=== PATIENT | male | born 1960 | race Two or more races ===

== ENCOUNTER 2017-10-26 07:10 | Day surgery (SDC) | END 2017-10-26 11:14 | disposition home or self-care (01) ==

== ENCOUNTER 2018-05-06 16:29 | Inpatient (IN) | payer OTHER ==
[~2018-05-06] VITALS: Ht 177.8 cm; Wt 87.0 kg
[~2018-05-06 16:29] MED LIST: AMLODIPINE
[2018-05-06] MEDS ORDERED: ACETAMINOPHEN 325 MG TAB PO STA (16:58)
[2018-05-06] MEDS ORDERED: CEFTRIAXONE 1 GM/50 ML (PMX) 50 ML IVPB STA (16:58)
[2018-05-06] MEDS ORDERED: SODIUM CHLORIDE 0.9% 1L BAG IV* STA (16:58)
--- NOTE | 2018-05-06 17:01 | ERD ---
ER Documentation Chief Complaint Chief Complaint BLOOD IN URINE X 2 DAYS HPI 58-year-old male with history of hypertension and prostatism presents to the ED complaining of a 3-day history of worsening suprapubic and perineal pain with dysuria, polyuria and dark urine. Denies back or flank pain. No nausea, vomiting, diarrhea or constipation. Denies scrotal swelling or penile discharge. No skin rash. No URI symptoms or cough. Denies chest pain, palpitations or shortness of breath. Denies anorexia, weight loss or night sw eats. Subjective fevers and chills. ROS All systems reviewed and are negative except as per history of present illness. Medications Home Meds Reported Medications Amlodipine Besylate* (Norvasc*) 5 Mg Tablet, 5 MG PO DAILY, TAB 05/06/18 Discontinued Reported Medications [Amlodipine] No Conflict Check 10/26/17 Allergies Allergies: Coded Allergies: No Known Drug Allergy (Verified Allergy, Mild, 09/05/10) PMhx/Soc Reviewed in chart. As per HPI. History of Surgery: Yes (APPENDECTOMY, prostate biopsy) Anesthesia Reaction: No Hx Neurological Disorder: No Hx Respiratory Disorders: No Hx Cardiac Disorders: Yes (HTN) Hx Psychiatric Problems: No Hx Miscellaneous Medical Probl: Yes (Prostatism, elevated PSA) Hx Alcohol Use: Yes Hx Substance Use: No Hx Tobacco Use: No FmHx No stroke or cancer Physical Exam Vitals Vital Signs Date Temp Pulse Resp B/P (MAP) Pulse Ox O2 O2 Flow FiO2 Time Delivery Rate 05/06/18 100.0 91 18 121/76 98 Room Air 19:34 (91) 05/06/18 93 20 124/81 97 Room Air 18:34 (95) 05/06/18 102 23 118/78 94 Room Air 18:26 (91) 05/06/18 101.8 17:27 05/06/18 Nasal 2 17:10 Cannula 05/06/18 103.1 122 18 146/93 99 16:32 (110) Physical Exam Const: Alert, moderate distress Head: Atraumatic Eyes: Normal Conjunctiva ENT: Normal External Ears, Nose and Mouth. Neck: Full range of motion. No meningismus. Resp: Clear to auscultation bilaterally Cardio: Regular rate and rhythm, no murmurs Abd: Soft, mild suprapubic tenderness but no right or left lower quadrant tenderness. No rebound or guarding. Non distended. Normal bowel sounds. Rectal examination deferred : Normal external genitalia. No scrotal swelling, erythema, crepitus or tenderness. Skin: No petechiae or rashes Back: No midline or flank tenderness Ext: No cyanosis, or edema Neur: Awake and alert Psych: Normal Mood and Affect Result Diagram: 05/08/18 0430 05/08/18 0431 Results 24 hrs Laboratory Tests Test 05/06/18 17:03 05/06/18 17:06 05/06/18 18:00 White Blood Count 20.7 10^3/ul Red Blood Count 5.10 10^6/ul Hemoglobin 15.3 g/dl Hematocrit 46.0 % Mean Corpuscular Volume 90.2 fl Mean Corpuscular Hemoglobin 30.0 pg Mean Corpuscular 33.3 g/dl Hemoglobin Concent Red Cell Distribution Width 12.9 % Platelet Count 229 10^3/UL Mean Platelet Volume 9.7 fl Immature Granulocytes % 0.900 % Neutrophils % 82.0 % Lymphocytes % 7.1 % Monocytes % 9.6 % Eosinophils % 0.1 % Basophils % 0.3 % Nucleated Red Blood Cells % 0.0 /100WBC Immature Granulocytes # 0.190 10^3/ul Neutrophils # 17.0 10^3/ul Lymphocytes # 1.5 10^3/ul Monocytes # 2.0 10^3/ul Eosinophils # 0.0 10^3/ul Basophils # 0.1 10^3/ul Nucleated Red Blood Cells # 0.0 10^3/ul Prothrombin Time 14.5 Sec Prothrombin Time Ratio 1.1 INR International 1.12 Normalized Ratio Activated Partial Thromboplast 30.7 Sec Time Sodium Level 138 mmol/L Potassium Level 4.5 mmol/L Chloride Level 101 mmol/L Carbon Dioxide Level 25 mmol/L Anion Gap 12 Blood Urea Nitrogen 20 mg/dl Creatinine 1.04 mg/dl Est Glomerular Filtrat > 60 mL/min Rate mL/min Glucose Level 139 mg/dl Calcium Level 9.7 mg/dl Total Bilirubin 0.5 mg/dl Direct Bilirubin 0.00 mg/dl Indirect Bilirubin 0.5 mg/dl Aspartate Amino 41 IU/L Transf (AST/SGOT) Alanine 47 IU/L Aminotransferase (ALT/SGPT) Alkaline Phosphatase 145 IU/L Troponin I < 0.012 ng/ml Total Protein 7.8 g/dl Albumin 4.4 g/dl Globulin 3.40 g/dl Albumin/Globulin Ratio 1.29 POC Venous Lactate 1.6 mmol/L Urine Color CHAD Urine Clarity CLOUDY Urine pH 5.0 Urine Specific Bailey 1.037 Urine Ketones 1+ mg/dL Urine Nitrite NEGATIVE mg/dL Urine Bilirubin 1+ mg/dL Urine Urobilinogen 2+ mg/dL Urine Leukocyte Esterase 2+ Nelson/ul Urine Microscopic RBC 25 /HPF Urine Microscopic WBC > 182 /HPF Urine Bacteria FEW /HPF Urine Mucus MANY /HPF Urine Hemoglobin 1+ mg/dL Urine Glucose NEGATIVE mg/dL Urine Total Protein 3+ mg/dl Current Medications Medications Dose Sig/Kaylin Start Time Status Last (Trade) Ordered Route PRN Stop Time Admin Dose Reason Admin Sodium 2,620 ml BOLUS OVER 2 05/06/18 DC 05/06/18 Chloride HOURS STAT 16:58 17:27 (NS) IV* 05/06/18 17:01 650 mg ONCE STAT 05/06/18 DC 05/06/18 Acetaminophen PO 16:58 17:27 (Tylenol 05/06/18 17:01 Tab) Ceftriaxone 50 ml @ ONCE STAT 05/06/18 DC 05/06/18 Sodium 100 mls/hr IVPB 16:58 17:26 05/06/18 17:27 IV Flush 10 ml STK-MED 05/06/18 DC 05/06/18 (NS 10 ml) ONCE .ROUTE 18:55 19:15 05/06/18 18:56 Sodium 100 ml @ ud STK-MED 05/06/18 DC 05/06/18 Chloride ONCE .ROUTE 18:55 19:15 05/06/18 18:56 Iodixanol 100 ml STK-MED 05/06/18 DC 05/06/18 (Visipaque ONCE .ROUTE 18:55 19:15 Locm) 05/06/18 18:56 Procedures/MDM DOCUMENTS REVIEWED: ED nurse, no prior records IMAGING: Chest AP portable: The cardiac silhouette is normal. The costophrenic angles are clear. No effusions or infiltrates. No mediastinal widening or abnormality of the bony thorax. My interpretation. PROCEDURE: CT abdomen and pelvis with contrast. CLINICAL INDICATION: Suprapubic abdominal pain. TECHNIQUE: CT scan of the abdomen and pelvis with contrast was performed. Coronal and sagittal images were also reformatted. 98 cc Visipaque - 320 intravenous contrast was administered without complication. DICOM images are available. One or more of the following dose reduction techniques were used: Automated exposure control, adjustment of the mA and/or kV according to patient size, use of iterative reconstruction technique. Total exam CTDIvol = 18.78 mGy and DLP = 1168.90 mGy-cm. COMPARISON: None. FINDINGS: Visualized lower thorax: Mild fibrotic scarring and traction bronchiectasis of the lower lobes is noted without evidence for infiltrate. There is no evidence for pleural effusion. Liver, gallbladder, pancreas and spleen: Hepatomegaly of approximate 20 cm is present with normal liver contour and low attenuation consistent with mild hepatic steatosis. There is no evidence for liver mass or ductal dilatation. The gallbladder is unremarkable. No common bile duct dilatation is evident. The pancreas is normal. The spleen is normal, not enlarged. Adrenal glands and genitourinary system: The adrenal glands are normal bilaterally. The kidneys are normal in size, contour and attenuation with no evidence for masses, calculi or hydronephrosis. Symmetric enhancement of the kidneys is present without evidence of pyelonephritis The ureters are unremarkable. The urinary bladder shows no abnormality. Prostatomegaly is present the volume of the gland estimated at 90 cc. Some mild stranding of the fat surrounding the prostate gland cannot exclude prostatitis. There is no evidence of abscess, some calcifications within the central portion of the prostate gland are present The scrotum shows no evidence of abnormality. Gastrointestinal system: The stomach, small bowel and large intestine are normal in caliber. There is no evidence of obstruction, ileus or inflammation. The appendix and surrounding fat are normal. A normal amount of fecal debris is present within the colon and there is no wall thickening to suggest colitis. Peritoneum, retroperitoneum, vessels and lymph nodes: The abdominal aorta is normal in caliber. There is no evidence for atherosclerotic calcification. Inferior vena cava is normal in caliber. There is no evidence for adenopathy. The peritoneal cavity is normal with no evidence for ascites. There is no evidence of pneumoperitoneum. A small fat-containing umbilical hernia is present Osseous structures and musculoskeletal system: There is no evidence for acute osseous abnormality or muscular pathology. Moderate lumbar enthesopathy is noted No subcutaneous abnormalities are present. RPTAT:HJJR IMPRESSION: 1. Moderate prostatomegaly with subtle inflammatory stranding suggested surrounding the prostate gland unable to exclude prostatitis without evidence for abscess. 2. There is no evidence of urinary tract calculus, hydronephrosis or pyelonephritis. 3. Hepatomegaly with mild hepatic steatosis. 4. Degenerative enthesopathy of the lumbar spine. Physician Jalen Date Time Electronically viewed and signed by Physician Jalen on 05/06/2018 19:19 JR/ [employer]ICAL DECISION MAKIN-year-old male with history of hypertension and prostatism presents to the ED complaining of a 3-day history of worsening suprapubic and perineal pain with dysuria, polyuria and dark urine. CBC significant for leukocytosis. Chemistry is unremarkable for electrolyte abnormalities or renal insufficiency. Urinalysis reveals greater than 182 WBCs per high-power field and positive leukocyte esterase. Chest x-ray negative for infiltrate or pneumonia. CT of the abdomen and pelvis to evaluate for acute intra-abdominal process including but not limited to diverticulitis, prostatitis, bowel obstruction, abdominal aortic aneurysm, obstructive uropathy and colitis reveals findings consistent with acute prostatitis without fluid collection or abscess. Patient with multiple criteria for systemic inflammatory response syndrome including fever, leukocytosis and tachycardia. Presentation consistent with sepsis secondary to urinary tract infection. Within 1 hour of arrival normal saline 30 cc/kg fluid bolus was given and broad spectrum antibiotics after cultures. Initial lactate was 1.6 and repeat 1.0. No hypotension or criteria for severe sepsis or septic shock. Fever defervesced with acetaminophen. Admit to [facility] for intravenous antibiotics, urology consultation, further evaluation and management. CALLS/CONSULTS: Time: 19:35, Dr. Drake PATIENT CARE TRANSITIONED: Time: 19:45, Dr. Kiet Flores. Counseled patient and family regarding diagnosis, diagnostic results and plan for admission. Departure Diagnosis: Primary Impression: Acute prostatitis Additional Impressions: SIRS (systemic inflammatory response syndrome) Sepsis Sepsis type: sepsis due to unspecified organism Qualified Codes: A41.9 - Sepsis, unspecified organism Hypertension Hypertension type: essential hypertension Qualified Codes: I10 - Essential (primary) hypertension Condition: Serious DAVID DE LA CRUZ MD May 06, 2018 17:01
[2018-05-06] MEDS ORDERED: AMLO5TAB4 PO (17:39)
[2018-05-06] MEDS ORDERED: SOD CHLORIDE 0.9% 100 ML ONE (18:55)
[2018-05-06] MEDS ORDERED: IODIXANOL LOCM 100 ML BTL ONE (18:55)
[2018-05-06] MEDS ORDERED: ONDANSETRON 4 MG INJ IV PRN ×2 (20:00→22:00)
[2018-05-06] MEDS ORDERED: ACETAMINOPHEN 325 MG TAB PO PRN ×2 (20:00→22:00)
[2018-05-06 21:14] VITALS: Ht 177.8 cm; Wt 87.0 kg
[2018-05-06 21:15] VITALS: BP 130/70; PULSE 88; RESP 18
[2018-05-06] MEDS ORDERED: NACL 0.9% 3 ML SYG IV SCH (22:00)
[2018-05-06] MEDS ORDERED: morphine 2 MG INJ IV PRN (22:00)
[2018-05-06] MEDS: SOD CHLORIDE 0.9% 1,000 ML IV SCH (23:12)
[2018-05-06] MEDS: HYDROCODONE/APAP (5/325) TAB PO PRN (23:17)
--- NOTE | 2018-05-07 01:38 | HP ---
Date/Time of Note Date/Time of Note DATE: 05/07/18 TIME: 01:38 Assessment/Plan VTE Prophylaxis Risk score (from Nsg)>0 risk: 1 SCD applied (from Nsg): Yes Pharmacological prophylaxis: other Lines/Catheters IV Catheter Type (from Nrsg): Peripheral IV Urinary Cath still in place: No Assessment/Plan Hospital Course Objective Physical exam General: Patient is laying in bed and answers questions appropriately Mentation: Patient is alert and oriented 4, Head: Normocephalic atraumatic Eyes: EOMI, pupils reactive to light Neck: Supple, nontender, midline Respiratory: Clear to auscultation bilaterally Cardiovascular: regular rate, no obvious murmurs Gastrointestinal: non-tender to palpation, bowel sounds heard. Neurological: Moves all extremities spontaneously Skin: No new skin lesions Assessment and plan Enlarged prostate with inflammation, likely prostatitis -IV antibiotic -Urology has been consulted -There is +1 hemoglobin in the UA, no mandy gross hematuria, urine is brown however ,due to the inflamed prostate, will hold off on nursing staff to insert Silver due to risk of damaging the prostate more and causing mandy hematuria. However will get post void bladder scan and reassess need of catheter. Sepsis secondary to above prostatitis -IV antibiotic -IV fluid -Blood cultures Questionable BPH history -Patient states that he has an appointment with a urologist in 1 month, Hypertension -cont home med Disposition -Await urologist consultation Result Diagram: 05/06/18 1703 05/06/18 1703 Results 24hrs Laboratory Tests Test 05/06/18 17:03 05/06/18 17:06 05/06/18 18:00 05/06/18 22:21 White Blood Count 20.7 H Red Blood Count 5.10 Hemoglobin 15.3 Hematocrit 46.0 Mean Corpuscular 90.2 Volume Mean Corpuscular 30.0 Hemoglobin Mean Corpuscular 33.3 Hemoglobin Concent Red Cell 12.9 Distribution Width Platelet Count 229 Mean Platelet Volume 9.7 Immature 0.900 H Granulocytes % Neutrophils % 82.0 H Lymphocytes % 7.1 L Monocytes % 9.6 Eosinophils % 0.1 Basophils % 0.3 Nucleated Red Blood 0.0 Cells % Immature 0.190 H Granulocytes # Neutrophils # 17.0 H Lymphocytes # 1.5 Monocytes # 2.0 H Eosinophils # 0.0 Basophils # 0.1 Nucleated Red Blood 0.0 Cells # Prothrombin Time 14.5 Prothrombin Time 1.1 Ratio INR International 1.12 Normalized Ratio Activated 30.7 Partial Thromboplast Time Sodium Level 138 Potassium Level 4.5 Chloride Level 101 Carbon Dioxide Level 25 Anion Gap 12 Blood Urea Nitrogen 20 Creatinine 1.04 Est Glomerular > 60 Filtrat Rate mL/min Glucose Level 139 Calcium Level 9.7 Total Bilirubin 0.5 Direct Bilirubin 0.00 Indirect Bilirubin 0.5 Aspartate Amino 41 Transf (AST/SGOT) Alanine 47 Aminotransferase (AL T/SGPT) Alkaline Phosphatase 145 H Troponin I < 0.012 Total Protein 7.8 Albumin 4.4 Globulin 3.40 H Albumin/Globulin 1.29 Ratio POC Venous Lactate 1.6 Urine Color CHAD Urine Clarity CLOUDY A Urine pH 5.0 Urine Specific 1.037 H Kersey Urine Ketones 1+ H Urine Nitrite NEGATIVE Urine Bilirubin 1+ H Urine Urobilinogen 2+ H Urine Leukocyte 2+ H Esterase Urine Microscopic 25 H RBC Urine Microscopic > 182 H WBC Urine Bacteria FEW A Urine Mucus MANY A Urine Hemoglobin 1+ H Urine Glucose NEGATIVE Urine Total Protein 3+ H Lactic Acid Level 1.0 HPI/ROS Admit Date/Time Admit Date/Time May 06, 2018 at 19:48 Hx of Present Illness Patient is a male with a past medical history significant for hypertension and questionable chronic BPH who presents to [facility] for painful urination as well as dark urine. Patient states for the past 3 days he has noticed that his urine is more of a brown color and also when he bears down to urinate there is pain associated. Patient states that there was one time that there was some mandy blood however he says that that has resolved and the urine is brown at this time. Patient states that although it is painful it he is still able to urinate. Patient denies any chest pain, shortness of breath, abdominal pain, nausea, vomiting, headache, leg pain PMH/Family/Social Past Medical History Medications Current Medications Ondansetron HCl (Zofran Inj) 4 mg BRIDGE ORDER PRN IV NAUSEA/VOMITING; Start 05/06/18 at 20:00; Stop 05/07/18 at 19:59 Acetaminophen (Tylenol Tab) 650 mg ER BRIDGE PRN PO .MILD PAIN 1-3 OR TEMP; Start 05/06/18 at 20:00; Stop 05/07/18 at 19:59 Ceftriaxone Sodium 50 ml @ 100 mls/hr Q24H IVPB ; Start 05/07/18 at 17:00 Sodium Chloride 1,000 ml @ 50 mls/hr Q20H IV Last administered on 05/06/18at 23:12; Admin Dose 50 MLS/HR; Start 05/06/18 at 21:58 IV Flush (NS 3 ml) 3 ml PER PROTOCOL IV ; Start 05/06/18 at 22:00 Ondansetron HCl (Zofran Inj) 4 mg Q6H PRN IV NAUSEA/VOMITING; Start 05/06/18 at 22:00 Acetaminophen (Tylenol Tab) 650 mg Q6H PRN PO .PAIN 1-3 OR TEMP; Start 05/06/18 at 22:00 Acetaminophen/ Hydrocodone Bitart ([place] (5/325)) 1 tab Q6H PRN PO .PAIN 4-6 Last administered on 05/06/18at 23:17; Admin Dose 1 TAB; Start 05/06/18 at 22:00 Morphine Sulfate (morphine) 2 mg Q4H PRN IV .PAIN 7-10; Start 05/06/18 at 22:00 Coded Allergies: No Known Drug Allergy (Verified Allergy, Mild, 09/05/10) Social History Smoking Status: Former smoker Exam/Review of Systems Vital Signs Vitals Vital Signs Date Temp Pulse Resp B/P (MAP) Pulse Ox O2 O2 Flow FiO2 Time Delivery Rate 05/06/18 98.1 88 18 130/70 99 Room Air 21:15 (90) 05/06/18 2 17:10 Intake and Output 05/06/18 05/06/18 05/07/18 1515:00 23:00 07:00 OutputOutput Total 200 ml BalanceBalance -200 ml WALDEMAR RUIZ May 07, 2018 01:38
[2018-05-07 02:40] VITALS: BP 120/70; PULSE 76; RESP 20
[2018-05-07 08:25] VITALS: BP_SYST 120; BP_DIAS 6; BP_DIAS 65; PULSE 83; RESP 20
--- NOTE | 2018-05-07 11:09 | PN ---
Date/Time of Note Date/Time of Note DATE: 05/07/18 TIME: 11:04 Assessment/Plan VTE Prophylaxis Risk score (from Nsg)>0 risk: 1 SCD applied (from Nsg): Yes Pharmacological prophylaxis: other Lines/Catheters IV Catheter Type (from Nrsg): Peripheral IV Urinary Cath still in place: No Assessment/Plan Hospital Course S: Patient still having some dysuria. No acute events overnight, waiting to be seen by urology team. O: Vs - see below Physical exam General: Lying in bed, at bedside, alert Mentation: Patient is alert and oriented 4 Head: Normocephalic atraumatic Eyes: EOMI, pupils reactive to light Neck: Supple, nontender, midline Respiratory: Clear to auscultation bilaterally Cardiovascular: regular rate, no obvious murmurs Gastrointestinal: non-tender to palpation, bowel sounds heard. Neurological: Moves all extremities spontaneously CT abdomen pelvis with contrast: IMPRESSION: 1. Moderate prostatomegaly with subtle inflammatory stranding suggested surrounding the prostate gland unable to exclude prostatitis without evidence for abscess. 2. There is no evidence of urinary tract calculus, hydronephrosis or pyelonephritis. 3. Hepatomegaly with mild hepatic steatosis. 4. Degenerative enthesopathy of the lumbar spine. Assessment and plan: 58 M p/w: # Enlarged prostate with inflammation, likely prostatitis -cannot rule out abscess on CT scan. UA positive, urine culture shows gram-negative rods. There is +1 hemoglobin in the UA, no mandy gross hematuria, urine is brown. -Continue IV antibiotic -Urology has been consulted -follow-up their recommendations -For now, due to the inflamed prostate, will hold off on nursing staff to insert Silver due to risk of damaging the prostate more and causing mandy hematuria. -Follow-up results of post void bladder scan and reassess need of catheter. #Sepsis - secondary to above prostatitis -IV antibiotic -IV fluid -Blood cultures # Questionable BPH history -Follow-up inpatient neurology recommendations, of note patient states that he has an appointment with a urologist in 1 month as well # Hypertension: Stable -cont home med Disposition -Await urologist consultation Result Diagram: 05/07/18 0432 05/07/18 0432 Results 24hrs Laboratory Tests Test 05/06/18 17:03 05/06/18 17:06 05/06/18 18:00 05/06/18 22:21 White Blood Count 20.7 H Red Blood Count 5.10 Hemoglobin 15.3 Hematocrit 46.0 Mean Corpuscular 90.2 Volume Mean Corpuscular 30.0 Hemoglobin Mean Corpuscular 33.3 Hemoglobin Concent Red Cell 12.9 Distribution Width Platelet Count 229 Mean Platelet Volume 9.7 Immature 0.900 H Granulocytes % Neutrophils % 82.0 H Lymphocytes % 7.1 L Monocytes % 9.6 Eosinophils % 0.1 Basophils % 0.3 Nucleated Red Blood 0.0 Cells % Immature 0.190 H Granulocytes # Neutrophils # 17.0 H Lymphocytes # 1.5 Monocytes # 2.0 H Eosinophils # 0.0 Basophils # 0.1 Nucleated Red Blood 0.0 Cells # Prothrombin Time 14.5 Prothrombin Time 1.1 Ratio INR International 1.12 Normalized Ratio Activated 30.7 Partial Thromboplast Time Sodium Level 138 Potassium Level 4.5 Chloride Level 101 Carbon Dioxide Level 25 Anion Gap 12 Blood Urea Nitrogen 20 Creatinine 1.04 Est Glomerular > 60 Filtrat Rate mL/min Glucose Level 139 Calcium Level 9.7 Total Bilirubin 0.5 Direct Bilirubin 0.00 Indirect Bilirubin 0.5 Aspartate Amino 41 Transf (AST/SGOT) Alanine 47 Aminotransferase (AL T/SGPT) Alkaline Phosphatase 145 H Troponin I < 0.012 Total Protein 7.8 Albumin 4.4 Globulin 3.40 H Albumin/Globulin 1.29 Ratio POC Venous Lactate 1.6 Urine Color CHAD Urine Clarity CLOUDY A Urine pH 5.0 Urine Specific 1.037 H [place] Urine Ketones 1+ H Urine Nitrite NEGATIVE Urine Bilirubin 1+ H Urine Urobilinogen 2+ H Urine Leukocyte 2+ H Esterase Urine Microscopic 25 H RBC Urine Microscopic > 182 H WBC Urine Bacteria FEW A Urine Mucus MANY A Urine Hemoglobin 1+ H Urine Glucose NEGATIVE Urine Total Protein 3+ H Lactic Acid Level 1.0 Test 05/07/18 04:32 White Blood Count 16.2 #H Red Blood Count 4.29 L Hemoglobin 12.8 L Hematocrit 39.6 L Mean Corpuscular 92.3 Volume Mean Corpuscular 29.8 Hemoglobin Mean Corpuscular 32.3 Hemoglobin Concent Red Cell 13.1 Distribution Width Platelet Count 184 Mean Platelet Volume 10.1 Immature 0.900 H Granulocytes % Neutrophils % 75.7 Lymphocytes % 10.9 L Monocytes % 11.3 H Eosinophils % 0.9 Basophils % 0.3 Nucleated Red Blood 0.0 Cells % Immature 0.140 H Granulocytes # Neutrophils # 12.3 H Lymphocytes # 1.8 Monocytes # 1.8 H Eosinophils # 0.1 Basophils # 0.1 Nucleated Red Blood 0.0 Cells # Sodium Level 141 Potassium Level 4.0 Chloride Level 103 Carbon Dioxide Level 26 Anion Gap 12 Blood Urea Nitrogen 14 Creatinine 0.87 Est Glomerular > 60 Filtrat Rate mL/min Glucose Level 99 # Hemoglobin A1c 5.5 Calcium Level 8.7 Magnesium Level 2.1 Total Bilirubin 0.5 Direct Bilirubin 0.00 Indirect Bilirubin 0.5 Aspartate Amino 24 Transf (AST/SGOT) Alanine 32 Aminotransferase (AL T/SGPT) Alkaline Phosphatase 96 Total Protein 6.7 # Albumin 3.3 # Globulin 3.40 H Albumin/Globulin 0.97 Ratio Exam/Review of Systems Exam Vitals Vital Signs Date Temp Pulse Resp B/P (MAP) Pulse Ox O2 O2 Flow FiO2 Time Delivery Rate 05/07/18 99.0 83 20 120/6 (44) 95 Room Air 08:25 05/06/18 2 17:10 Intake and Output 05/06/18 05/06/18 05/07/18 1515:00 23:00 07:00 IntakeIntake Total 420 ml OutputOutput Total 200 ml 100 ml BalanceBalance -200 ml 320 ml Results Results 24hrs Laboratory Tests Test 05/06/18 17:03 05/06/18 17:06 05/06/18 18:00 05/06/18 22:21 White Blood Count 20.7 H Red Blood Count 5.10 Hemoglobin 15.3 Hematocrit 46.0 Mean Corpuscular 90.2 Volume Mean Corpuscular 30.0 Hemoglobin Mean Corpuscular 33.3 Hemoglobin Concent Red Cell 12.9 Distribution Width Platelet Count 229 Mean Platelet Volume 9.7 Immature 0.900 H Granulocytes % Neutrophils % 82.0 H Lymphocytes % 7.1 L Monocytes % 9.6 Eosinophils % 0.1 Basophils % 0.3 Nucleated Red Blood 0.0 Cells % Immature 0.190 H Granulocytes # Neutrophils # 17.0 H Lymphocytes # 1.5 Monocytes # 2.0 H Eosinophils # 0.0 Basophils # 0.1 Nucleated Red Blood 0.0 Cells # Prothrombin Time 14.5 Prothrombin Time 1.1 Ratio INR International 1.12 Normalized Ratio Activated 30.7 Partial Thromboplast Time Sodium Level 138 Potassium Level 4.5 Chloride Level 101 Carbon Dioxide Level 25 Anion Gap 12 Blood Urea Nitrogen 20 Creatinine 1.04 Est Glomerular > 60 Filtrat Rate mL/min Glucose Level 139 Calcium Level 9.7 Total Bilirubin 0.5 Direct Bilirubin 0.00 Indirect Bilirubin 0.5 Aspartate Amino 41 Transf (AST/SGOT) Alanine 47 Aminotransferase (AL T/SGPT) Alkaline Phosphatase 145 H Troponin I < 0.012 Total Protein 7.8 Albumin 4.4 Globulin 3.40 H Albumin/Globulin 1.29 Ratio POC Venous Lactate 1.6 Urine Color CHAD Urine Clarity CLOUDY A Urine pH 5.0 Urine Specific 1.037 H [place] Urine Ketones 1+ H Urine Nitrite NEGATIVE Urine Bilirubin 1+ H Urine Urobilinogen 2+ H Urine Leukocyte 2+ H Esterase Urine Microscopic 25 H RBC Urine Microscopic > 182 H WBC Urine Bacteria FEW A Urine Mucus MANY A Urine Hemoglobin 1+ H Urine Glucose NEGATIVE Urine Total Protein 3+ H Lactic Acid Level 1.0 Test 05/07/18 04:32 White Blood Count 16.2 #H Red Blood Count 4.29 L Hemoglobin 12.8 L Hematocrit 39.6 L Mean Corpuscular 92.3 Volume Mean Corpuscular 29.8 Hemoglobin Mean Corpuscular 32.3 Hemoglobin Concent Red Cell 13.1 Distribution Width Platelet Count 184 Mean Platelet Volume 10.1 Immature 0.900 H Granulocytes % Neutrophils % 75.7 Lymphocytes % 10.9 L Monocytes % 11.3 H Eosinophils % 0.9 Basophils % 0.3 Nucleated Red Blood 0.0 Cells % Immature 0.140 H Granulocytes # Neutrophils # 12.3 H Lymphocytes # 1.8 Monocytes # 1.8 H Eosinophils # 0.1 Basophils # 0.1 Nucleated Red Blood 0.0 Cells # Sodium Level 141 Potassium Level 4.0 Chloride Level 103 Carbon Dioxide Level 26 Anion Gap 12 Blood Urea Nitrogen 14 Creatinine 0.87 Est Glomerular > 60 Filtrat Rate mL/min Glucose Level 99 # Hemoglobin A1c 5.5 Calcium Level 8.7 Magnesium Level 2.1 Total Bilirubin 0.5 Direct Bilirubin 0.00 Indirect Bilirubin 0.5 Aspartate Amino 24 Transf (AST/SGOT) Alanine 32 Aminotransferase (AL T/SGPT) Alkaline Phosphatase 96 Total Protein 6.7 # Albumin 3.3 # Globulin 3.40 H Albumin/Globulin 0.97 Ratio Medications Medication Current Medications Ondansetron HCl (Zofran Inj) 4 mg BRIDGE ORDER PRN IV NAUSEA/VOMITING; Start 2/16/19 at 20:00; Stop 05/07/18 at 19:59 Acetaminophen (Tylenol Tab) 650 mg ER BRIDGE PRN PO .MILD PAIN 1-3 OR TEMP; Start 05/06/18 at 20:00; Stop 05/07/18 at 19:59 Ceftriaxone Sodium 50 ml @ 100 mls/hr Q24H IVPB ; Start 05/07/18 at 17:00 Sodium Chloride 1,000 ml @ 50 mls/hr Q20H IV Last administered on 05/06/18at 23:12; Admin Dose 50 MLS/HR; Start 05/06/18 at 21:58 IV Flush (NS 3 ml) 3 ml PER PROTOCOL IV ; Start 05/06/18 at 22:00 Ondansetron HCl (Zofran Inj) 4 mg Q6H PRN IV NAUSEA/VOMITING; Start 05/06/18 at 22:00 Acetaminophen (Tylenol Tab) 650 mg Q6H PRN PO .PAIN 1-3 OR TEMP; Start 05/06/18 at 22:00 Acetaminophen/ Hydrocodone Bitart ([place] (5/325)) 1 tab Q6H PRN PO .PAIN 4-6 Last administered on 05/06/18at 23:17; Admin Dose 1 TAB; Start 05/06/18 at 22:00 Morphine Sulfate (morphine) 2 mg Q4H PRN IV .PAIN 7-10; Start 05/06/18 at 22:00 JANIS CORDERO May 07, 2018 11:09
--- NOTE | 2018-05-07 11:40 | CONS ---
Assessment/Plan Assessment/Plan Hospital Course (Demo Recall) 58-year-old male presented to the emergency room with a 3 days history of dysuria and dark urine. He has been having urinary frequency, urgency and nocturia. He did have one episode of gross painful hematuria. Patient has had a history of elevated PSA and his recent PSA at his primary care doctor was 5.7. He did undergo a transrectal ultrasound and ultrasound-guided biopsy of the prostate 5 years ago and that was benign according to him. The CT scan of the abdomen and pelvis showed a large prostate. Patient has had a history of prostate biopsy and elevated PSA. Urine culture is showing gram- negative rods. Impression: Urinary tract infection and prostatitis. Plan: Continue the ceftriaxone pending the results of the urine culture. And start him on tamsulosin to help him empty his bladder better. Consultation Date/Type/Reason Admit Date/Time May 06, 2018 at 19:48 Date of Consultation: May 07, 2018 Type of Consult Urology Reason for Consultation Acute prostatitis and urinary tract infection Requesting Provider: JANIS CORDERO Date/Time of Note DATE: 05/07/18 TIME: 11:30 Hx of Present Illness 58-year-old male presented to the emergency room with a 3 days history of dysuria and dark urine. He has been having urinary frequency, urgency and nocturia. He did have one episode of gross painful hematuria. Patient has had a history of elevated PSA and his recent PSA at his primary care doctor was 5.7. He did undergo a transrectal ultrasound and ultrasound-guided biopsy of the prostate 5 years ago and that was benign according to him. Constitutional: no complaints Eyes: no complaints ENT: no complaints Respiratory: no complaints; No shortness of breath, No wheezing Cardiovascular: no complaints; No chest pain Gastrointestinal: no complaints; No nausea, No vomiting (Review) Genitourinary: other (As per history of present illness) Musculoskeletal: no complaints Skin: no complaints Neurologic: no complaints Endocrine: no complaints Lymphatic: no complaints Psychological: no complaints Immunologic: no complaints Past Medical History Medical History: hypertension Home Meds Reported Medications Amlodipine Besylate* (Norvasc*) 5 Mg Tablet, 5 MG PO DAILY, TAB 05/06/18 Discontinued Reported Medications [Amlodipine] No Conflict Check 10/26/17 Medications Current Medications Ondansetron HCl (Zofran Inj) 4 mg BRIDGE ORDER PRN IV NAUSEA/VOMITING; Start 05/06/18 at 20:00; Stop 05/07/18 at 19:59 Acetaminophen (Tylenol Tab) 650 mg ER BRIDGE PRN PO .MILD PAIN 1-3 OR TEMP; Start 05/06/18 at 20:00; Stop 05/07/18 at 19:59 Ceftriaxone Sodium 50 ml @ 100 mls/hr Q24H IVPB ; Start 05/07/18 at 17:00 Sodium Chloride 1,000 ml @ 50 mls/hr Q20H IV Last administered on 05/06/18at 23:12; Admin Dose 50 MLS/HR; Start 05/06/18 at 21:58 IV Flush (NS 3 ml) 3 ml PER PROTOCOL IV ; Start 05/06/18 at 22:00 Ondansetron HCl (Zofran Inj) 4 mg Q6H PRN IV NAUSEA/VOMITING; Start 05/06/18 at 22:00 Acetaminophen (Tylenol Tab) 650 mg Q6H PRN PO .PAIN 1-3 OR TEMP; Start 05/06/18 at 22:00 Acetaminophen/ Hydrocodone Bitart ([place] (5/325)) 1 tab Q6H PRN PO .PAIN 4-6 Last administered on 05/06/18at 23:17; Admin Dose 1 TAB; Start 05/06/18 at 22:00 Morphine Sulfate (morphine) 2 mg Q4H PRN IV .PAIN 7-10; Start 05/06/18 at 22:00 Allergies: Coded Allergies: No Known Drug Allergy (Verified Allergy, Mild, 09/05/10) Past Surgical History Past Surgical Hx: appendectomy Social History Alcohol Use: rarely Smoking Status: Former smoker Drug Use: none Exam/Review of Systems Exam Vitals Vital Signs Date Temp Pulse Resp B/P (MAP) Pulse Ox O2 O2 Flow FiO2 Time Delivery Rate 05/07/18 99.0 83 20 120/6 (44) 95 Room Air 08:25 05/06/18 2 17:10 Intake and Output 05/06/18 05/06/18 05/07/18 1515:00 23:00 07:00 IntakeIntake Total 420 ml OutputOutput Total 200 ml 100 ml BalanceBalance -200 ml 320 ml Constitutional: alert, oriented Psych: no complaints Head: normocephalic Eyes: nl conjunctiva ENMT: nl external ears & nose Neck: supple, non-tender Respiratory: normal air movement; No wheezing Cardiovascular: No jugular venous distention (JVD) Gastrointestinal: soft, surgical scars Genitourinary - Male: nl penis, nl scrotum, other (Rectal exam: Prostate is large and soft) Musculoskeletal: nl extremities to inspection Extremities: No calf tenderness Neurological: nl mental status Results Result Diagram: 05/07/18 0432 05/07/18 0432 Results 24hrs Laboratory Tests Test 05/06/18 17:03 05/06/18 17:06 05/06/18 18:00 05/06/18 22:21 White Blood Count 20.7 H Red Blood Count 5.10 Hemoglobin 15.3 Hematocrit 46.0 Mean Corpuscular 90.2 Volume Mean Corpuscular 30.0 Hemoglobin Mean Corpuscular 33.3 Hemoglobin Concent Red Cell 12.9 Distribution Width Platelet Count 229 Mean Platelet Volume 9.7 Immature 0.900 H Granulocytes % Neutrophils % 82.0 H Lymphocytes % 7.1 L Monocytes % 9.6 Eosinophils % 0.1 Basophils % 0.3 Nucleated Red Blood 0.0 Cells % Immature 0.190 H Granulocytes # Neutrophils # 17.0 H Lymphocytes # 1.5 Monocytes # 2.0 H Eosinophils # 0.0 Basophils # 0.1 Nucleated Red Blood 0.0 Cells # Prothrombin Time 14.5 Prothrombin Time 1.1 Ratio INR International 1.12 Normalized Ratio Activated 30.7 Partial Thromboplast Time Sodium Level 138 Potassium Level 4.5 Chloride Level 101 Carbon Dioxide Level 25 Anion Gap 12 Blood Urea Nitrogen 20 Creatinine 1.04 Est Glomerular > 60 Filtrat Rate mL/min Glucose Level 139 Calcium Level 9.7 Total Bilirubin 0.5 Direct Bilirubin 0.00 Indirect Bilirubin 0.5 Aspartate Amino 41 Transf (AST/SGOT) Alanine 47 Aminotransferase (AL T/SGPT) Alkaline Phosphatase 145 H Troponin I < 0.012 Total Protein 7.8 Albumin 4.4 Globulin 3.40 H Albumin/Globulin 1.29 Ratio POC Venous Lactate 1.6 Urine Color CHAD Urine Clarity CLOUDY A Urine pH 5.0 Urine Specific 1.037 H [place] Urine Ketones 1+ H Urine Nitrite NEGATIVE Urine Bilirubin 1+ H Urine Urobilinogen 2+ H Urine Leukocyte 2+ H Esterase Urine Microscopic 25 H RBC Urine Microscopic > 182 H WBC Urine Bacteria FEW A Urine Mucus MANY A Urine Hemoglobin 1+ H Urine Glucose NEGATIVE Urine Total Protein 3+ H Lactic Acid Level 1.0 Test 05/07/18 04:32 White Blood Count 16.2 #H Red Blood Count 4.29 L Hemoglobin 12.8 L Hematocrit 39.6 L Mean Corpuscular 92.3 Volume Mean Corpuscular 29.8 Hemoglobin Mean Corpuscular 32.3 Hemoglobin Concent Red Cell 13.1 Distribution Width Platelet Count 184 Mean Platelet Volume 10.1 Immature 0.900 H Granulocytes % Neutrophils % 75.7 Lymphocytes % 10.9 L Monocytes % 11.3 H Eosinophils % 0.9 Basophils % 0.3 Nucleated Red Blood 0.0 Cells % Immature 0.140 H Granulocytes # Neutrophils # 12.3 H Lymphocytes # 1.8 Monocytes # 1.8 H Eosinophils # 0.1 Basophils # 0.1 Nucleated Red Blood 0.0 Cells # Sodium Level 141 Potassium Level 4.0 Chloride Level 103 Carbon Dioxide Level 26 Anion Gap 12 Blood Urea Nitrogen 14 Creatinine 0.87 Est Glomerular > 60 Filtrat Rate mL/min Glucose Level 99 # Hemoglobin A1c 5.5 Calcium Level 8.7 Magnesium Level 2.1 Total Bilirubin 0.5 Direct Bilirubin 0.00 Indirect Bilirubin 0.5 Aspartate Amino 24 Transf (AST/SGOT) Alanine 32 Aminotransferase (AL T/SGPT) Alkaline Phosphatase 96 Total Protein 6.7 # Albumin 3.3 # Globulin 3.40 H Albumin/Globulin 0.[address] scan of the abdomen and pelvis: 1. Moderate prostatomegaly with subtle inflammatory stranding suggested surrounding the prostate gland unable to exclude prostatitis without evidence for abscess. 2. There is no evidence of urinary tract calculus, hydronephrosis or pyelonephritis. 3. Hepatomegaly with mild hepatic steatosis. 4. Degenerative enthesopathy of the lumbar spine. Medications Medication Current Medications Ondansetron HCl (Zofran Inj) 4 mg BRIDGE ORDER PRN IV NAUSEA/VOMITING; Start 05/06/18 at 20:00; Stop 05/07/18 at 19:59 Acetaminophen (Tylenol Tab) 650 mg ER BRIDGE PRN PO .MILD PAIN 1-3 OR TEMP; Start 05/06/18 at 20:00; Stop 05/07/18 at 19:59 Ceftriaxone Sodium 50 ml @ 100 mls/hr Q24H IVPB ; Start 05/07/18 at 17:00 Sodium Chloride 1,000 ml @ 50 mls/hr Q20H IV Last administered on 05/06/18at 23:12; Admin Dose 50 MLS/HR; Start 05/06/18 at 21:58 IV Flush (NS 3 ml) 3 ml PER PROTOCOL IV ; Start 05/06/18 at 22:00 Ondansetron HCl (Zofran Inj) 4 mg Q6H PRN IV NAUSEA/VOMITING; Start 05/06/18 at 22:00 Acetaminophen (Tylenol Tab) 650 mg Q6H PRN PO .PAIN 1-3 OR TEMP; Start 05/06/18 at 22:00 Acetaminophen/ Hydrocodone Bitart ([place] (5/325)) 1 tab Q6H PRN PO .PAIN 4-6 Last administered on 05/06/18at 23:17; Admin Dose 1 TAB; Start 05/06/18 at 22:00 Morphine Sulfate (morphine) 2 mg Q4H PRN IV .PAIN 7-10; Start 05/06/18 at 22:00 ALICIA BARNETT MD May 07, 2018 11:40
[2018-05-07] MEDS: HYDROCODONE/APAP (5/325) TAB PO PRN (11:51)
[2018-05-07 15:03] VITALS: BP 116/69; PULSE 69; RESP 20
[2018-05-07 17:00] VITALS: BP 118/72; PULSE 68; RESP 20
[2018-05-07] MEDS ORDERED: CEFTRIAXONE 1 GM/50 ML (PMX) 50 ML IVPB SCH (17:00)
[2018-05-07] MEDS: SOD CHLORIDE 0.9% 1,000 ML IV SCH (17:02)
[2018-05-07 20:38] VITALS: BP 107/63; PULSE 64; RESP 18
[2018-05-07] MEDS ORDERED: TAMSULOSIN (SR) 0.4 MG CAP PO SCH (21:00)
[2018-05-08 07:29] VITALS: BP 119/73; PULSE 71; RESP 18
[2018-05-08] MEDS ORDERED: CIPR500S2 PO (10:10)
[2018-05-08] MEDS ORDERED: TAMS-14 PO (10:10)
--- NOTE | 2018-05-08 10:16 | PDOCDIS ---
Discharge Instructions DIAGNOSIS Discharge Diagnosis Acute bacterial prostatitis CONDITION [id number] Patient Condition: [id number] Good HOME CARE INSTRUCTIONS: [id number] Diet Instructions: [id number] Regular ACTIVITY: [id number] Activity Restrictions: [id number] No Restrictions FOLLOW UP/APPOINTMENTS Follow-up Plan 1. Take 6 weeks (84 days) of antibiotics (ciprofloxacin) as prescribed. 2. Take tamsulosin to reduce your enlarged prostate. You may need to stay on this medicine for life. 3. Your insurance may not authorize you to see Dr. Drake. See an authorized urologist in 1 month. 4. Return to the emergency room if you are unable to urinate for more than 12 hours. 5. See your primary care doctor in 1-2 weeks. 1. [place] 6 semanas (84 feliciano) de antibiticos (ciprofloxacina) segn lo prescrito. 2. [place] tamsulosina para reducir la prstata agrandada. Es posible que deba seguir tomando grayson medicamento de por nan. 3. [place] seguro no puede autorizarlo a bay al Dr. Drake. Consulte a un urlogo autorizado en 1 mes. 4. Regrese a la bib de emergencias si no puede orinar por ms de 12 horas. 5. Consulte a tubbs mdico de atencin primaria en 1-2 semanas. MERCY WISE MD May 08, 2018 10:16
--- NOTE | 2018-05-08 13:17 | CONS ---
Consult Date/Type/Reason Admit Date/Time May 06, 2018 at 19:48 Initial Consult Date 05/07/18 Type of Consultation: Urology Reason for Consultation Prostatitis,Urinary tract infection Requesting Provider: JANIS CORDERO Date/Time of Note DATE: 05/08/18 TIME: 13:11 Subjective patient is feeling better,he has voided twice. Objective Vitals Vital Signs Date Temp Pulse Resp B/P (MAP) Pulse Ox O2 O2 Flow FiO2 Time Delivery Rate 05/08/18 98.7 71 18 119/73 95 07:29 (88) 05/07/18 Room Air 20:38 05/06/18 2 17:10 Intake and Output 05/07/18 05/07/18 05/08/18 1515:00 23:00 07:00 IntakeIntake Total 2480 ml 1510 ml 600 ml OutputOutput Total 705 ml 640 ml BalanceBalance 1775 ml 870 ml 600 ml Exam Post void residual at night was 450ml,however this morning it was less than 200ml. Urine culture [id number] col per ml E coli sensitive to all antibiotics Results/Medications Result Diagram: 05/08/18 0430 05/08/18 0431 Results 24 hrs Laboratory Tests Test 05/08/18 04:30 05/08/18 04:31 White Blood Count 10.6 # Red Blood Count 4.59 L Hemoglobin 13.6 L Hematocrit 41.9 L Mean Corpuscular Volume 91.3 Mean Corpuscular Hemoglobin 29.6 Mean Corpuscular Hemoglobin Concent 32.5 Red Cell Distribution Width 13.2 Platelet Count 217 Mean Platelet Volume 9.8 Immature Granulocytes % 0.400 Neutrophils % 68.2 Lymphocytes % 17.3 Monocytes % 8.9 Eosinophils % 4.9 Basophils % 0.3 Nucleated Red Blood Cells % 0.0 Immature Granulocytes # 0.040 H Neutrophils # 7.2 Lymphocytes # 1.8 Monocytes # 0.9 Eosinophils # 0.5 Basophils # 0.0 Nucleated Red Blood Cells # 0.0 Sodium Level 141 Potassium Level 4.0 Chloride Level 105 Carbon Dioxide Level 28 Anion Gap 8 Blood Urea Nitrogen 13 Creatinine 0.80 Est Glomerular Filtrat Rate mL/min > 60 Glucose Level 113 Calcium Level 8.9 Phosphorus Level 3.2 Magnesium Level 2.2 Home Meds Active Scripts Ciprofloxacin (Ciprofloxacin) 500 Mg/5 Ml Lety.mc.rec, 500 MG PO BID, #84 TAB Prov:MERCY WISE MD 05/08/18 Tamsulosin Hcl* (Flomax*) 0.4 Mg Cap.er.24h, 0.4 MG PO HS, #90 CAP Prov:MERCY WISE MD 05/08/18 Reported Medications Amlodipine Besylate* (Norvasc*) 5 Mg Tablet, 5 MG PO DAILY, TAB 05/06/18 Discontinued Reported Medications [Amlodipine] No Conflict Check 10/26/17 Assessment/Plan Hospital Course (Demo Recall) 58-year-old male presented to the emergency room with a 3 days history of dysuria and dark urine. He has been having urinary frequency, urgency and nocturia. He did have one episode of gross painful hematuria. Patient has had a history of elevated PSA and his recent PSA at his primary care doctor was 5.7. He did undergo a transrectal ultrasound and ultrasound-guided biopsy of the prostate 5 years ago and that was benign according to him. The CT scan of the abdomen and pelvis showed a large prostate. Patient has had a history of prostate biopsy and elevated PSA. Urine culture showed: URINE CULTURE Final Organism 1 ESCHERICHIA COLI COLONY COUNT 30,000 - 40,000 CFU/ml E COLI M.I.C. RX --------- --- AMPICILLIN <=2 S CEFAZOLIN <=4 S CEFOTAXIME S CIPROFLOXACIN <=0.25 S GENTAMICIN <=1 S LEVOFLOXACIN 1 S NITROFURANTOIN <=16 S TOBRAMYCIN <=1 S TRIMETHOPRIM/SULFAMETHOXAZOLE <=20 S Impression: Urinary tract infection and prostatitis.Post void <200ml Plan: He may be discharged on cipro and flomax and follow up as outpatient ALICIA BARNETT MD May 08, 2018 13:17
--- NOTE | 2018-05-08 15:05 | DS ---
Date/Time of Note Date/Time of Note DATE: 05/08/18 TIME: 15:02 Discharge Summary Admission/Discharge Info Admit Date/Time May 06, 2018 at 19:48 Discharge Date/Time May 08, 2018 at 12:10 Discharge Diagnosis Acute bacterial prostatitis Patient Condition: Good Consults Dr Drake, urology Procedures None Hx of Present Illness Patient is a man with a past medical history significant for hypertension and questionable chronic BPH who presents to [facility] for painful urination as well as dark urine. Patient states for the past 3 days he has noticed that his urine is more of a brown color and also when he bears down to urinate there is pain associated. Patient states that there was one time that there was some mandy blood however he says that that has resolved and the urine is brown at this time. Patient states that although it is painful it he is still able to urinate. Patient denies any chest pain, shortness of breath, abdominal pain, nausea, vomiting, headache, leg pain Hospital Course He was started on tamsulosin and empiric ceftriaxone for UTI. He was monitored for 2 days. LUTS gradually improved and he was able to void spontaneously without ever needing a Silver. Urine cultures grew reyes-sensitive E Coli. He will be discharged with 6 weeks of ciprofloxacin as well as tamsulosin to followup with Dr. Drake or urologist contracted with his insurance. Home Meds Active Scripts Ciprofloxacin (Ciprofloxacin) 500 Mg/[address] [facility].rec, 500 MG PO BID, #84 TAB Prov:MERCY WISE MD 05/08/18 Tamsulosin Hcl* (Flomax*) 0.4 Mg Cap.er.24h, 0.4 MG PO HS, #90 CAP Prov:MERCY WISE MD 05/08/18 Reported Medications Amlodipine Besylate* (Norvasc*) 5 Mg Tablet, 5 MG PO DAILY, TAB 05/06/18 Discontinued Reported Medications [Amlodipine] No Conflict Check 10/26/17 Follow-up Plan 1. Take 6 weeks (84 days) of antibiotics (ciprofloxacin) as prescribed. 2. Take tamsulosin to reduce your enlarged prostate. You may need to stay on this medicine for life. 3. Your insurance may not authorize you to see Dr. Drake. See an authorized urologist in 1 month. 4. Return to the emergency room if you are unable to urinate for more than 12 hours. 5. See your primary care doctor in 1-2 weeks. 1. [place] 6 semanas (84 feliciano) de antibiticos (ciprofloxacina) segn lo prescrito. 2. [place] tamsulosina para reducir la prstata agrandada. Es posible que deba seguir tomando grayson medicamento de por nan. 3. Tubbs seguro no puede autorizarlo a bay al Dr. Drake. Consulte a un urlogo autorizado en 1 mes. 4. Regrese a la bib de emergencias si no puede orinar por ms de 12 horas. 5. Consulte a tubbs mdico de atencin primaria en 1-2 semanas. Primary Care Provider Not On Staff Doctor Time spent on discharge: > 30 minutes Pending Labs Laboratory Tests Test 05/08/18 04:30 05/08/18 04:31 White Blood Count 10.6 10^3/ul (4.8-10.8) Red Blood Count 4.59 10^6/ul (4.70-6.10) Hemoglobin 13.6 g/dl (14.0-18.0) Hematocrit 41.9 % (42.0-52.0) Mean Corpuscular Volume 91.3 fl (82.0-101.0) Mean Corpuscular Hemoglobin 29.6 pg (29.0-33.0) Mean Corpuscular 32.5 g/dl (32.0-37.0) Hemoglobin Concent Red Cell Distribution Width 13.2 % (11.5-14.5) Platelet Count 217 10^3/UL (140-415) Mean Platelet Volume 9.8 fl (7.4-10.4) Immature Granulocytes % 0.400 % (0.001-0.429) Neutrophils % 68.2 % (39.0-77.0) Lymphocytes % 17.3 % (15.0-51.0) Monocytes % 8.9 % (0.0-11.0) Eosinophils % 4.9 % (0.0-7.0) Basophils % 0.3 % (0.0-2.0) Nucleated Red Blood Cells % 0.0 /100WBC (0.0-0.0) Immature Granulocytes # 0.040 10^3/ul (0.0-0.031) Neutrophils # 7.2 10^3/ul (1.6-7.5) Lymphocytes # 1.8 10^3/ul (0.8-2.9) Monocytes # 0.9 10^3/ul (0.3-0.9) Eosinophils # 0.5 10^3/ul (0.0-0.5) Basophils # 0.0 10^3/ul (0.0-0.1) Nucleated Red Blood Cells # 0.0 10^3/ul (0.0-0.0) Sodium Level 141 mmol/L (135-144) Potassium Level 4.0 mmol/L (3.5-5.1) Chloride Level 105 mmol/L (97-110) Carbon Dioxide Level 28 mmol/L (21-31) Anion Gap 8 (5-13) Blood Urea Nitrogen 13 mg/dl (7-20) Creatinine 0.80 mg/dl (0.61-1.24) Est Glomerular Filtrat > 60 mL/min (>60) Rate mL/min Glucose Level 113 mg/dl (70-220) Calcium Level 8.9 mg/dl (8.4-10.2) Phosphorus Level 3.2 mg/dl (2.5-4.9) Magnesium Level 2.2 mg/dl (1.7-2.5) MERCY WISE MD May 08, 2018 15:05
== END 2018-05-08 12:10 | disposition home or self-care (01) | DRG 872 ==
LOC: E/R 16:29 → MS1 19:48
PROVIDERS: ADMIT Internal Medicine; ATTEND Hospitalist
DX: A41.9 Sepsis, unspecified organism (principal); N41.0 Acute prostatitis; N39.0 Urinary tract infection, site not specified; I10 Essential (primary) hypertension; B96.20 Unspecified Escherichia coli [E. coli] as the cause of diseases classified elsewhere; B96.89 Other specified bacterial agents as the cause of diseases classified elsewhere; Z87.891 Personal history of nicotine dependence
CPT/HCPCS: 36415; 71045; 74177; 80048; 80053; 81001; 83036; 83605; 83735; 84100; 84484; 85025; 85610; 85730; 87040; 87086; 93005; 96374; J0696; J7030; Q9967